=== PATIENT | female | born 1965 | race Caucasian/White ===

== ENCOUNTER 2023-03-13 16:36 | Emergency (ER) | payer OTHER, SELFPAY ==
[2023-03-13 17:01] VITALS: BP 160/105; PULSE 86; RESP 16; TEMP 37; O2SAT 100
[2023-03-13 17:02] VITALS: BP 164/99
--- NOTE | 2023-03-13 17:29 | ED.URI ---
HPI - URI/Sore Throat General Chief Complaint: Upper Respiratory Infection Stated Complaint: chills,feels really hot Time Seen by Provider: 03/13/23 17:36 Source: patient and RN notes reviewed Mode of arrival: ambulatory Limitations: no limitations History of Present Illness HPI Narrative: 57 y/o female presented for c/o waking in the middle of last night with an episode of feeling hot on the inside. She took a shower after that and had no further episodes. Patient also reports she felt clammy today and has had dry mouth. She has felt disoriented and has had increase in headaches over the past few weeks. Took a few tablets of Magnesium over the past few days for hand shaking. Denies associated cp, palpitations, dizziness, vision changes, swelling, sob, cough, n/v/d/f/c. Patient has not followed with a pcp in many years, scheduled to establish with on 03/30/23. States she has work screenings and was told the BP was elevated a few months ago. Patient smokes 1/2ppd. Tested negative for covid at home today. Related Data Home Medications Medication Instructions Recorded Confirmed No Home Medications 03/13/23 03/13/23 Allergies Allergy/AdvReac Type Severity Reaction Status Date / Time bacitracin Allergy Unknown RASH Verified 03/13/23 18:13 neomycin Allergy Unknown RASH Verified 03/13/23 18:13 polymyxin B Allergy Unknown RASH Verified 03/13/23 18:13 Sulfa (Sulfonamide Allergy Unknown RASH Verified 03/13/23 18:13 Antibiotics) Review of Systems Review of Systems: CONSTITUTIONAL: Denies body aches, fever, chills EYES: Denies visual changes, redness, or discharge. ENT: Denies rhinorrhea, congestion, sore throat, or otalgia. CARDIOVASCULAR: Denies chest pain, palpitations, or edema. RESPIRATORY: Denies cough or dyspnea. GASTROINTESTINAL: Denies abdominal pain, nausea, vomiting, or diarrhea. GENITOURINARY: Denies dysuria or hematuria. SKIN: Denies rash, itching, or wounds. MUSCULOSKELETAL: Denies back pain, joint pain, or myalgia. NEUROLOGIC: Endorses headache, denies numbness, tingling, or weakness PSYCH: reports depression and anxiety. All systems reviewed & are unremarkable except as noted in HPI and below PMFSH Surgical History Surgical History (Updated 03/13/23 @ 17:56 by Tessa Calderon APRN) History of carpal tunnel surgery Social History Social History (Updated 03/13/23 @ 17:57 by Tessa Calderon APRN) Smoking packs per day: 0.5 Smoking cigarettes per day: 10.0 Smoking status: Current every day smoker Tobacco type: cigarettes Comments At time of signature, I have reviewed and agree with nursing past medical, surgical, social and family history unless otherwise noted. Please see nursing chart for further information. There is no relevant family history pertinent to the presenting complaint Exam Narrative: GENERAL: Well-appearing HEAD: Normocephalic, atraumatic. EYES: PERRLA, EOMI. ENT: Mucous membranes pink and moist. No rhinorrhea. TMs normal bilaterally, left canal with drying blood c/w abrasion NECK: Normal AROM. Supple. No lymphadenopathy. CHEST: No respiratory distress. Clear to auscultation. HEART: Regular rate and rhythm. No murmur appreciated. Normal peripheral pulses. ABDOMEN: Soft, nontender, nondistended, normal active bowel sounds. EXTREMITIES: Normal range of motion. No edema. SKIN: Warm, dry, no rash. Capillary refill normal. Normal skin turgor. NEURO:No focal deficits. Alert and oriented x3. EOMs intact without nystagmus. No facial droop/asymmetry noted bilaterally. Ambulatory exam with a normal based, steady gait. PSYCH: Normal affect. Course Course Emergency Course: Patient is aware of diagnosis, understands and agrees to treatment plan. Anticipatory guidance given. Patient agrees to follow-up as directed and is aware of reasons to seek care at the emergency department. Portions of this record may have been created with voice recognition software
[2023-03-13 18:15] VITALS: BP 146/94
--- NOTE | 2023-03-13 19:00 | ECG_ITS ---
Measurements Intervals [place] Rate: 71 P: 37 DE: 129 QRS: 25 QRSD: 92 T: 45 QT: 345 QTc: 377 Interpretive Statements SINUS RHYTHM NORMAL ELECTROCARDIOGRAM NO PREVIOUS ECG AVAILABLE FOR COMPARISON Electronically Signed On 03-14-2023 8:26:50 CDT by Arun Kruse M.D.
== END 2023-03-13 18:15 | disposition short-term general hospital (02) ==
PROVIDERS: Emergency Provider Nurse Practitioner Family
DX: R03.0 Elevated blood-pressure reading, without diagnosis of hypertension (principal); F17.210 Nicotine dependence, cigarettes, uncomplicated
CPT/HCPCS: 93005; 99213; G0463

== ENCOUNTER 2023-03-13 18:38 | Emergency (ER) | payer OTHER, SELFPAY ==
[2023-03-13] VITALS (10 sets, daily range): BP systolic 133–148; BP diastolic 89–97; PULSE 64–88; RESP 12–28; TEMP 36.9; O2SAT 96–100
--- NOTE | 2023-03-13 19:25 | ED.RECABL ---
HPI - Recheck/Abnormal Lab/Rx General Chief Complaint: Recheck/Abnormal Lab/Rx <Sienna Castellanos PA-C - Last Filed: 03/14/23 00:53> Stated Complaint: elevated BP, headaches <Sienna Castellanos PA-C - Last Filed: 03/14/23 00:53> Time Seen by Provider: 03/13/23 19:07 <Sienna Castellanos PA-C - Last Filed: 03/14/23 00:53> History of Present Illness HPI narrative: Patient is a 57-year-old female here for evaluation of feeling hot from the inside yesterday. States that she noticed this at nighttime when she was going to bed and she had continued symptoms throughout the evening. She took her temperature and she was afebrile. She states that she went through menopause about 10 years ago and did not have similar symptoms. She denies any other complaints, no chest pain, shortness of breath, weight loss, abdominal pain, nausea or vomiting. She was referred from urgent care. She has not seen a physician in many years but has follow-up with them next week. <MARY Cole Last Filed: 03/14/23 00:53> Related Data Home Medications: Home Medications Medication Instructions Recorded Confirmed No Home Medications 03/13/23 03/13/23 <MARY Cole Last Filed: 03/14/23 00:53> Allergies/Adverse Reactions: Allergies Allergy/AdvReac Type Severity Reaction Status Date / Time bacitracin Allergy Unknown RASH Verified 03/15/23 08:06 neomycin Allergy Unknown RASH Verified 03/15/23 08:06 polymyxin B Allergy Unknown RASH Verified 03/15/23 08:06 Sulfa (Sulfonamide Allergy Unknown RASH Verified 03/15/23 08:06 Antibiotics) <MARY Cole Last Filed: 03/14/23 00:53> Review of Systems Review of Systems: Gen: Reports hot flashes Eyes: Denies eye pain or visual change ENT: Denies congestion Respiratory: Denies shortness of breath or cough CV: Denies chest pain or palpitations GI: Denies abdominal pain nausea, emesis or diarrhea : denies burning, urgency, frequency or hematuria Musculoskeletal: Denies back pain or muscle pain Neuro: Denies numbness, tingling, weakness or focal weakness Skin: Denies rash Except as documented, all other systems reviewed and negative <Sienna Castellanos PA-C - Last Filed: 03/14/23 00:53> [facility] Surgical History Surgical History: Surgical History History of carpal tunnel surgery <Sienna Castellanos PA-C - Last Filed: 03/14/23 00:53> Social History Social History: Social History (Updated 03/13/23 @ 17:57 by Tessa Calderon, WARBLE SAW OPERATOR) Smoking packs per day: 0.5 Smoking cigarettes per day: 10.0 Smoking status: Current every day smoker Tobacco type: cigarettes <Sienna Castellanos PA-C - Last Filed: 03/14/23 00:53> Exam Narrative: APPEARANCE: Well appearing, no pain in distress, well-nourished. Head: Normocephalic and atraumatic. EYES: PERRLA/EOMI, conjunctivae clear NOSE: No nasal drainage EARS: External ear normal in appearance THROAT: Oropharynx is clear. Mucous membranes are moist. NECK: Supple. No adenopathy, no masses. RESPIRATORY: Airway patent, respirations nonlabored. Clear to auscultation bilaterally, no rales, rhonchi, wheezing. CARDIOVASCULAR: Regular rate and rhythm without murmurs, rubs, or gallops. ABDOMINAL: Normoactive bowel sounds. Soft, nontender, nondistended. No rebound tenderness or guarding. MUSCULOSKELETAL: Extremities are warm and well-perfused. Moves all extremities well. No edema. NEURO: Normal speech. No focal neurologic deficits. SKIN: Skin is warm and dry. No rashes. PSYCHIATRIC: Normal affect/mood. <Sienna Castellanos PA-C - Last Filed: 03/14/23 00:53> Course DIRECTOR COMPENSATION/PA Physician Supervision This is a was performed by both a physician and an APC. I performed all aspects of the MDM as documented w/ the following additions: 57-year-old female presenting with chief comp
[2023-03-13 19:41] LABS: Basophils Percent Auto 0.4 % (0.2-1.2); Eosinophils Absolute Auto 0.1 K/mm3 (0-0.3); Eosinophils Percent Auto 1.6 % (0-4.4); Hematocrit 41.6 % (37.0-47.0); Hemoglobin 13.9 g/dL (12.0-15.0); Immature Granulocyte Absolute 0.02 K/mm3 (0.00-0.031); Immature Granulocyte Percent A 0.3 % (0-0.5); Lymphocytes Absolute Auto 2.16 K/mm3 (0.9-3.2); Lymphocytes Percent Auto 29.4 % (18.3-44.2); Mean Corpuscular HGB Conc 33.4 g/dl (32-36); Mean Corpuscular Hemoglobin 30.3 pg (26-34); Mean Corpuscular Volume 90.8 fl (80-100); Mean Platelet Volume 9.4 fl (7.4-10.4); Monocytes Absolute Auto 0.6 K/mm3 (0.1-0.6); Monocytes Percent Auto 8.7 % (2.6-8.5); Neutrophils Absolute Auto 4.4 K/mm3 (1.3-6.7); Neutrophils Percent Auto 59.6 % (45.5-73.1); Platelet Count Result 230 k/mm3 (150-375); Red Blood Count 4.58 M/mm3 (4.2-5.4); Red Cell Distribution Width 12.6 % (11.5-14.5); White Blood Count 7.4 K/mm3 (4.5-10.0)
[2023-03-13 19:53] LABS: Alanine Aminotransferase 17 U/L (6-35); Alkaline Phosphatase 82 U/L (38-126); Anion Gap 1 mmol/L (8-16); Aspartate Amino Transferase 22 U/L (14-36); Bilirubin,Total 0.4 mg/dL (0.2-1.3); Blood Urea Nitrogen 10 mg/dL (7-17); Calcium 9.3 mg/dL (8.4-10.2); Carbon Dioxide 31 mmol/L (22-30); Chloride 107 mmol/L (98-107); Estimated CRCL calculation 75 ml/min; Estimated Glomerular Filt Rate > 60; Glucose 95 mg/dL (65-110); Magnesium 2.3 mg/dL (1.6-2.3); Potassium 4.5 mmol/L (3.4-5.0); Sodium 139 mmol/L (137-145)
== END 2023-03-13 20:36 | disposition home or self-care (01) ==
PROVIDERS: Emergency Provider Physician Assistant
DX: R68.83 Chills (without fever) (principal); F17.210 Nicotine dependence, cigarettes, uncomplicated
CPT/HCPCS: 36415; 80053; 83735; 85025; 99283

== ENCOUNTER 2023-03-15 06:31 | Emergency (ER) | payer OTHER, SELFPAY ==
[2023-03-15 06:50] VITALS: BP 154/91; PULSE 73; RESP 16; TEMP 36.4; O2SAT 100
[2023-03-15 08:03] VITALS: BP 135/94; PULSE 68; RESP 18; O2SAT 99
--- NOTE | 2023-03-15 08:29 | ED.GENADULT ---
HPI - General Adult General Chief complaint: Recheck/Abnormal Lab/Rx Stated complaint: HTN Time Seen by Provider: 03/15/23 07:58 History of Present Illness HPI narrative: Patient is a 57-year-old female who presents ER with elevated blood pressure. Reports her blood pressure jumped into the 140s systolic after going for a walk at home. This made her very anxious so she came to the ER. She had been seen in the ER over the weekend for elevated blood pressures and sensations of feeling hot flashes. She is scheduled to follow-up with her PCP on 03/30/2023. She is not currently on any antihypertensives. She has no chest pain or chest pressure. No runny nose or sore throat or productive cough. No additional concerns. Related Data Home Medications Medication Instructions Recorded Confirmed No Home Medications 03/13/23 03/13/23 Allergies Allergy/AdvReac Type Severity Reaction Status Date / Time bacitracin Allergy Unknown RASH Verified 03/15/23 08:06 neomycin Allergy Unknown RASH Verified 03/15/23 08:06 polymyxin B Allergy Unknown RASH Verified 03/15/23 08:06 Sulfa (Sulfonamide Allergy Unknown RASH Verified 03/15/23 08:06 Antibiotics) Review of Systems Review of Systems: All systems reviewed & are unremarkable except as noted in HPI and below Constitutional: Constitutional: Denies chills and Denies fever(s) ENT: Denies nasal congestion and Denies sore throat Cardiovascular: Cardiovascular: Denies chest pain, Denies rapid heart rate and Denies radiating jaw, neck or arm pain Respiratory: Respiratory: Denies dyspnea PMFSH Surgical History Surgical History History of carpal tunnel surgery Social History Social History (Updated 03/13/23 @ 17:57 by Tessa Calderon, CYBER SOFTWARE ENGINEER) Smoking packs per day: 0.5 Smoking cigarettes per day: 10.0 Smoking status: Current every day smoker Tobacco type: cigarettes Exam Narrative: GENERAL: Well-appearing, well-nourished, and in no acute distress. HEAD: Normocephalic, atraumatic. ENT: Mucous membranes moist. CHEST: Clear to auscultation. No respiratory distress. HEART: Regular rate and rhythm. Normal peripheral pulses. EXTREMITIES: Normal range of motion. No edema. SKIN: Warm, dry, no rash. NEURO: Alert and oriented x3. PSYCH: Normal mood and affect. Course Vital Signs Vital signs: Vital Signs Temperature 97.6 F 03/15/23 06:50 Pulse Rate 73 03/15/23 06:50 Respiratory Rate 16 03/15/23 06:50 Blood Pressure 154/91 H 03/15/23 06:50 Pulse Oximetry 100 03/15/23 06:50 Oxygen Delivery Room Air 03/15/23 06:50 Temperature 97.6 F 03/15/23 06:50 Pulse Rate 68 03/15/23 08:03 Respiratory Rate 18 03/15/23 08:03 Blood Pressure 135/94 H 03/15/23 08:03 Pulse Oximetry 99 03/15/23 08:03 Oxygen Delivery Room Air 03/15/23 06:50 Medical Decision Making Vital Signs Vital Signs: Vital Signs Temperature 97.6 F 03/15/23 06:50 Pulse Rate 73 03/15/23 06:50 Respiratory Rate 16 03/15/23 06:50 Blood Pressure 154/91 H 03/15/23 06:50 Pulse Oximetry 100 03/15/23 06:50 Oxygen Delivery Room Air 03/15/23 06:50 Temperature 97.6 F 03/15/23 06:50 Pulse Rate 68 03/15/23 08:03 Respiratory Rate 18 03/15/23 08:03 Blood Pressure 135/94 H 03/15/23 08:03 Pulse Oximetry 99 03/15/23 08:03 Oxygen Delivery Room Air 03/15/23 06:50 Discharge Plan Discharge Clinical Impression: Hypertension Patient Disposition: Home, Self-Care Condition: Stable Instructions: Hypertension (ED) Additional Instructions: Return the ER if you have chest pain or shortness of breath, you lose consciousness, you have blood pressure of 180 mmHg systolic (top number) that does not improve with rest, or you have additional concerns. Follow-up with your primary care doctor for further treatment. Prescriptions: No Action No Home Medications
[2023-03-15 08:51] VITALS: BP 127/84; PULSE 71; RESP 17; O2SAT 98
== END 2023-03-15 08:53 | disposition home or self-care (01) ==
PROVIDERS: Emergency Provider Emergency Medicine
DX: I10 Essential (primary) hypertension (principal); F17.210 Nicotine dependence, cigarettes, uncomplicated
CPT/HCPCS: 99281

== ENCOUNTER 2023-03-22 11:56 | Outpatient (CLI) | payer OTHER, SELFPAY ==
--- NOTE | ~2023-03-22 | XR_ITS ---
Cervical Spine: AP, lateral, open-mouth views Clinical History: Pain Findings: The normal lordotic curve is maintained. The vertebral bodies and posterior elements appea r intact. There is moderate degenerative disc narrowing at C5-C6 and C6-C7. There is mild facet arthr opathy at these levels. Pre-vertebral soft tissues are unremarkable. Impression: Mild degenerative spondylosis, as above. Reviewed, dictated and finalized at location . Impression: Mild degenerative spondylosis, as above.
== END 2023-03-22 11:57 | disposition home or self-care (01) ==
PROVIDERS: PCP Emergency Medicine; Visit Provider Emergency Medicine
DX: M47.892 Other spondylosis, cervical region (principal)
CPT/HCPCS: 72040

== ENCOUNTER 2023-03-26 14:02 | Emergency (ER) | payer OTHER, SELFPAY ==
[2023-03-26] VITALS (17 sets, daily range): BP systolic 132–161; BP diastolic 86–98; PULSE 77–88; RESP 16–18; TEMP 36.8; O2SAT 97–100
[2023-03-26 16:35] LABS: Basophils Absolute Auto 0.1 K/mm3 (0.0-0.1); Basophils Percent Auto 0.6 % (0.2-1.2); Eosinophils Absolute Auto 0.2 K/mm3 (0-0.3); Eosinophils Percent Auto 1.8 % (0-4.4); Hematocrit 42.2 % (37.0-47.0); Hemoglobin 13.9 g/dL (12.0-15.0); Immature Granulocyte Absolute 0.03 K/mm3 (0.00-0.031); Immature Granulocyte Percent A 0.3 % (0-0.5); Lymphocytes Absolute Auto 2.08 K/mm3 (0.9-3.2); Lymphocytes Percent Auto 23.9 % (18.3-44.2); Mean Corpuscular HGB Conc 32.9 g/dl (32-36); Mean Corpuscular Volume 90.9 fl (80-100); Mean Platelet Volume 9.7 fl (7.4-10.4); Monocytes Absolute Auto 0.7 K/mm3 (0.1-0.6); Monocytes Percent Auto 8.3 % (2.6-8.5); Neutrophils Absolute Auto 5.7 K/mm3 (1.3-6.7); Neutrophils Percent Auto 65.1 % (45.5-73.1); Platelet Count Result 242 k/mm3 (150-375); Red Blood Count 4.64 M/mm3 (4.2-5.4); Red Cell Distribution Width 12.5 % (11.5-14.5); White Blood Count 8.7 K/mm3 (4.5-10.0)
[2023-03-26 16:40] LABS: Alanine Aminotransferase 15 U/L (6-35); Alkaline Phosphatase 81 U/L (38-126); Anion Gap 2 mmol/L (8-16); Aspartate Amino Transferase 19 U/L (14-36); Bilirubin,Total 0.3 mg/dL (0.2-1.3); Blood Urea Nitrogen 12 mg/dL (7-17); Calcium 9.3 mg/dL (8.4-10.2); Carbon Dioxide 31 mmol/L (22-30); Chloride 105 mmol/L (98-107); Estimated CRCL calculation 75 ml/min; Estimated Glomerular Filt Rate > 60; Glucose 93 mg/dL (65-110); Magnesium 2.1 mg/dL (1.6-2.3); Potassium 4.6 mmol/L (3.4-5.0); Sodium 138 mmol/L (137-145)
--- NOTE | 2023-03-26 16:50 | ED.GENADULT ---
HPI - General Adult General Chief complaint: Unspecified Stated complaint: my insides are on fire Time Seen by Provider: 03/26/23 15:24 History of Present Illness HPI narrative: 57-year-old female presented to the emergency department for evaluation of feeling flushed. Patient states has had this sensation before and it was related to arthritis. Patient denies any increase in pain. Patient did have follow-up yesterday with physical therapy for the arthritis in her neck and when she is going to bed night she felt increased flushing throughout her body. Patient denies any change in medications. Patient reports she is postmenopausal and that she started going through menopause when she was 39. Patient states the flushing feel it does feel similar but she is following removed from her menopause flashes. Patient denies any cough colds or fevers patient denies any pain with urination. Patient denies any change in her caffeine intake. Related Data Home Medications Medication Instructions Recorded Confirmed fexofenadine 180 mg tablet 180 mg PO DAILY 03/17/23 ([facility] Allergy) ibuprofen 200 mg tablet (Advil) 200 mg PO Q6H PRN 03/17/23 Allergies Allergy/AdvReac Type Severity Reaction Status Date / Time bacitracin Allergy Unknown RASH Verified 03/24/23 13:10 neomycin Allergy Unknown RASH Verified 03/24/23 13:10 polymyxin B Allergy Unknown RASH Verified 03/24/23 13:10 Sulfa (Sulfonamide Allergy Unknown RASH Verified 03/24/23 13:10 Antibiotics) Review of Systems Review of Systems: All systems reviewed & are unremarkable except as noted in HPI and below PMFSH Past Medical History Medical History Elevated systolic blood pressure reading with diagnosis of hypertension Surgical History Surgical History History of carpal tunnel surgery Social History Social History (Updated 03/17/23 @ 15:25 by Nydia Floyd MA) Smoking packs per day: 0.5 Smoking cigarettes per day: 10.0 Smoking status: Current every day smoker Tobacco type: cigarettes Current Housing: Decline to Answer Concerned About Future Housing: Decline to Answer Difficulty Paying Gas/Electric Bills: Decline to Answer Difficulty Paying for Meds: Decline to Answer Currently Unemployed: Decline to Answer Education: Decline to Answer Difficulty w/ Childcare or Family Care: Decline to Answer Exam Narrative: APPEARANCE: Well appearing, no pain, no distress, well-nourished. HEAD: normocephalic, atraumatic. EYES: PERRLA/EOMI, conjunctivae clear. NOSE: Normal no drainage NECK: Supple. No adenopathy, no masses. RESPIRATORY: Airway patent, respirations nonlabored. Clear to auscultation bilaterally, no rales, rhonchi, wheezing. CARDIOVASCULAR: Regular rate and rhythm without murmurs rubs or gallops. ABDOMINAL: Soft, nontender, nondistended, normal bowel sounds MUSCULOSKELETAL: Moves all extremities. Strength/ROM intact, No edema, No calf tenderness. NEURO: Alert. Cranial nerves II through XII intact. Grossly intact SKIN: Warm, dry. Normal Color Course Course Emergency Course: 49-year-old female presented the emergency department for evaluation of a flushed feeling patient was afebrile with no leukocytosis and a stable hemoglobin. Patient had no significant electrolyte abnormalities. Patient's thyroid hormone was normal. No evidence of urinary tract infection. Patient was updated on the results of the work-up and was encouraged of close follow-up with her primary care physician for further outpatient testing. Patient and family are comfortable with the plan for discharge and close follow-up. Patient was well-appearing and stable at time of discharge. Vital Signs Vital signs: Vital Signs Temperature 98.2 F 03/26/23 14:07 Pulse Rate 80 03/26/23 14:07 Respiratory Rate 16 03/26/23 14:07 Blood Pr
[2023-03-26 16:58] LABS: Appearance Urine Clear (Clear); Bilirubin Urine Negative (Negative); Blood Urine Negative (Negative); Color Urine Yellow (Yellow); Glucose Urine UA Negative (Negative); Ketones Urine Negative (Negative); Leukocyte Esterase Ur Negative LEU/UL (Negative); Nitrate Urine Negative (Negative); Protein Urine Negative (Negative); Specific Grav Ur 1.007 (1.001-1.035); Urobilinogen Urine 0.2 mg/dL (<2.0)
[2023-03-26 17:00] LABS: Add Urine Microscopic? NO
== END 2023-03-26 17:58 | disposition home or self-care (01) ==
PROVIDERS: Emergency Provider Emergency Medicine; PCP Emergency Medicine
DX: R23.2 Flushing (principal); F17.210 Nicotine dependence, cigarettes, uncomplicated
CPT/HCPCS: 36415; 80053; 81003; 83735; 84443; 85025; 99283

== ENCOUNTER → 2023-04-19 10:56 | Outpatient (CLI) | payer SELFPAY ==
--- NOTE | ~2023-04-19 | CT_ITS ---
EXAMINATION:CT chest high resolution wo nm DATE: 04/19/2023 11:23 INDICATION: Tobacco use. TECHNIQUE: Computed tomography (CT) of the chest was performed without intravenous contrast. Automate d exposure control and iterative reconstruction technique were employed. The dose-length product (DLP ) was 129.50 mGy-cm. COMPARISON: None. FINDINGS: There is mild scarring at the lung apices. There is mild emphysema. There is minimal depend ent atelectasis. No pleural effusion. The heart size is normal. There are coronary artery calcificati ons. No pericardial effusion. There is a 1.7 cm cyst in the liver. There is mild thoracic spondylosis . IMPRESSION: 1. Lung-RADS category 2: Benign appearance or behavior. Continue annual screening with noncontrast lo w-dose chest CT in 12 months. Reviewed, dictated and finalized at location A. IMPRESSION: 1. Lung-RADS category 2: Benign appearance or behavior. Continue annual screeni ng with noncontrast low-dose chest CT in 12 months.
== END ==
PROVIDERS: PCP Emergency Medicine; Visit Provider Emergency Medicine
DX: Z12.2 Encounter for screening for malignant neoplasm of respiratory organs (principal); F17.210 Nicotine dependence, cigarettes, uncomplicated
CPT/HCPCS: 71250

== ENCOUNTER 2023-05-05 14:45 | Outpatient (RCR) | payer OTHER, SELFPAY ==
--- NOTE | 2023-03-25 11:53 | OPREHPOC ---
Outpatient Therapy Plan of Care This is a Multidisciplinary Plan of Care that may contain components documented by all disciplines (PT, OT, and ST.) PT Problem 1 PT Problem #1 Knowledge Deficit PT Goal 1 Goal 1. Patient will demonstrate independence with home exercise PT Problem 2 PT Problem #2 Pain PT Goal 1 Goal 1. Patient will rate pain as 2/10 in neck PT Problem 3 PT Problem #3 Impaired Strength PT Goal 1 Goal 1. Patient will self report ability to sit upright with good posture for 30 minutes in home environment PT Problem 4 PT Problem #4 Impaired Range of Motion PT Goal 1 Goal 1. Patient will demonstrate cervical lateral flexion and rotation WNL 2. Patient will report improved ability to perform head turns with driving
--- NOTE | 2023-03-25 11:54 | PTOPEVAL1 ---
Assessment and note entered by Mary Lou Tejada, PT Evaluation Information Assessment Status Evaluation Diagnosis neck pain Onset March 09 Subjective Information Referred to PT due to neck pain primarily located on R side of neck. Patient rates pain currently 4/ 10, denies radicular symptoms into arm. Pain limits ability to turn head to the R. Patient goal with physical therapy is to decrease neck pain Reported Pain Level Pain Score 4: Self Report Additional Pain Score Comments pain is aggravating. pain worsened with immobility and relieved with movement. Assessment PT Clinical Summary Patient presents to physical therapy with R sided neck pain which began after sleeping funny on a lawn chair. Pain currently rated as 4/10 in R neck . Patient presents with postural impairments, decreased cervical range of motion, tightness in pec musculature/upper traps/levator, weakness in scapular musculature further causing postural impairments and increasing pain. Patient would benefit from skilled PT services 1-2x/wk for 4 weeks to improve range of motion, increase strength of postural muscles in order to improve upright posture and decrease pain Plan of Care Interventions Hot Pack/Cold Pack,Manual Therapy,Patient/ Caregiver Education,Therapeutic Activities, Therapeutic Exercise,Ultrasound Other Interventions cupping, taping, iastm PT Services Indicated Yes Treatment Frequency and 102x/wk for 4 weeks Duration These treatments will address the objective and functional deficits as defined above. The patient will be advanced safely and appropriately in order for the patient to progress towards his/her prior level of function. Additional exercises will be introduced and as well as a comprehensive home exercise program upon discharge, if needed, ?to ensure carryover of functional gains achieved in the clinic. This treatment plan has been reviewed and agreement upon by the patient.
--- NOTE | 2023-05-05 15:42 | PTOPDC ---
Assessment and note entered by Arun Malagon Evaluation Information Assessment Status Discharge Diagnosis neck pain Onset March 09 Subjective Information Pt. reports seeing very little change in her pain. She reports she notices temporary relief following treatment, however it does not last. She continues to describe pain along the neck and into the described upper trap. She states that pain is most notable taking care of her yard work. She reports that she still takes a sleep aid at night, and has been sleeping good with medication. She states that she is currently taking Advil daily to address pain. She states that standing in one position or sitting in one position seem to increase her pain most. She states that she is schedulded to follow up with her doctor in May. Reported Pain Level Pain Score 2: Self Report Assessment PT Clinical Summary Despite continued pain reports the pt. has met all goals established at the initial evaluation. She has been advanced through a comprehensive rehab program focused on c-spine mobility, postural control and strength. she is encouraged to follow up with her doctor regarding remaining pain and will be discharged from our care at this time. Plan of Care PT Services Indicated Yes
== END 2023-05-05 16:21 | disposition home or self-care (01) ==
LOC: ANHPT 14:45
PROVIDERS: PCP Emergency Medicine; Visit Provider Emergency Medicine
DX: M54.2 Cervicalgia (principal); M47.812 Spondylosis without myelopathy or radiculopathy, cervical region
CPT/HCPCS: 97014; 97110; 97140; 97162; 97530; G0283